=== PATIENT | male | born 1935 | race Caucasian/White ===

== ENCOUNTER 2021-01-12 22:45 | Inpatient (IN) | payer MEDICARE ==
[2021-01-13 02:24] VITALS: BMI 28.0
[2021-01-13] MEDS: Sodium Chloride 0.9% 1,000 ML IV SCH ×2 (04:30→11:37)
[2021-01-13] MEDS ORDERED: Piperacillin/Tazobactam 3.375 GM in Sodium Chloride 0.9% 100 ML IVPB SCH (05:00)
[2021-01-13 06:33] LABS: SARS-CoV-2 NAA Rapid Test Not Detected (NotDetected)
[2021-01-13] MEDS ORDERED: Iothalamate Meglumine 60% 30 ML VIAL FS ONE ×2 (11:40→14:06)
[2021-01-13] MEDS ORDERED: Fentanyl 100 MCG/2 ML VIAL ONE (11:43)
[2021-01-13] MEDS ORDERED: Piperacillin/Tazobactam 3.375 GM VIAL ONE (12:06)
[2021-01-13] MEDS ORDERED: Sodium Chloride 0.9% 100 ML ONE (12:07)
[2021-01-13] MEDS ORDERED: ePHEDrine 50 MG/ML VIAL ONE (13:32)
[2021-01-13] MEDS ORDERED: Lidocaine 1% PF 5 ML VIAL ONE (13:32)
[2021-01-13] MEDS ORDERED: PROPOFOL 200 MG/20 ML VIAL ONE (13:32)
[2021-01-13] MEDS ORDERED: Ondansetron HCl/PF 4 MG/2 ML Vial IVP PRN (14:26)
[2021-01-13] MEDS ORDERED: Promethazine HCl 25 MG/ML VIAL IVPB PRN (14:26)
[2021-01-13] MEDS ORDERED: Promethazine HCl 25 MG/ML VIAL IM PRN (14:26)
[2021-01-13] MEDS ORDERED: Ondansetron PF 4 MG/2 ML Vial IVP PRN (18:59)
[2021-01-13] MEDS ORDERED: Loratadine 10 MG TAB PO PRN (20:37)
[2021-01-13] MEDS: Carvedilol 6.25 MG TAB PO SCH (20:50)
[2021-01-14 06:02] LABS: #Eosinphils 0.2 thou/uL (0.0-0.7); #Monocytes 0.8 thou/uL (0.11-0.59); #Neutrophils 5.1 thou/uL (1.40-6.50); %Basophils 0.3 % (0.0-1.0); %Eosinophils 3.3 % (0.0-10.0); %Lymphocytes 13.5 % (21.0-51.0); %Monocytes 11.8 % (0.0-10.0); %Neutrophils 71.1 % (42.0-75.0); Mean Corpuscular HGB CONC 32.7 g/dL (32.0-36.0); Mean Corpuscular Hemoglobin 32.8 pg (27.0-31.0); Mean Platelet Volume 6.8 fL (7.4-10.4); Platelet Count 194 thou/uL (130-400); RBC Distribution Width 12.3 % (11.5-14.5); Red Blood Cell (RBC) Count 4.26 mill/uL (4.70-6.10); White Blood Cell (WBC) Count 7.1 thou/uL (4.8-10.8)
[2021-01-14 06:21] LABS: Anion Gap 10 mmol/L (10-20); BUN (Urea Nitrogen) 32 mg/dL (8.4-25.7); Calc. Creatinine Clearance 28 mL/min (70-130); Calcium 8.9 mg/dL (7.8-10.44); Carbon Dioxide 30 mmol/L (23-31); Chloride 105 mmol/L (98-107); Glucose 110 mg/dL (83-110); Potassium 3.7 mmol/L (3.5-5.1); Sodium 141 mmol/L (136-145)
[2021-01-14] MEDS: Carvedilol 6.25 MG TAB PO SCH ×2 (08:37→20:17)
[2021-01-14] MEDS: Sodium Chloride 0.9% 1,000 ML IV SCH (14:29)
[2021-01-15] MEDS: Sodium Chloride 0.9% 1,000 ML IV SCH ×2 (00:16→10:26)
[2021-01-15 06:13] LABS: #Eosinphils 0.3 thou/uL (0.0-0.7); #Lymphocytes 1.1 thou/uL (1.20-3.40); #Monocytes 0.8 thou/uL (0.11-0.59); %Basophils 0.2 % (0.0-1.0); %Eosinophils 4.9 % (0.0-10.0); %Lymphocytes 17.5 % (21.0-51.0); %Monocytes 12.6 % (0.0-10.0); %Neutrophils 64.8 % (42.0-75.0); Hemoglobin 13.6 g/dL (14.0-18.0); Mean Corpuscular HGB CONC 33.9 g/dL (32.0-36.0); Mean Corpuscular Hemoglobin 33.8 pg (27.0-31.0); Mean Corpuscular Volume 99.8 fL (78.0-98.0); Mean Platelet Volume 7.3 fL (7.4-10.4); Platelet Count 195 thou/uL (130-400); RBC Distribution Width 12.3 % (11.5-14.5); Red Blood Cell (RBC) Count 4.02 mill/uL (4.70-6.10); White Blood Cell (WBC) Count 6.2 thou/uL (4.8-10.8)
[2021-01-15 06:32] LABS: Anion Gap 8 mmol/L (10-20); BUN (Urea Nitrogen) 20 mg/dL (8.4-25.7); Calc. Creatinine Clearance 47 mL/min (70-130); Calcium 8.7 mg/dL (7.8-10.44); Carbon Dioxide 29 mmol/L (23-31); Chloride 108 mmol/L (98-107); Glucose 105 mg/dL (83-110); Potassium 3.9 mmol/L (3.5-5.1); Sodium 141 mmol/L (136-145)
[2021-01-15] MEDS: Carvedilol 6.25 MG TAB PO SCH (08:40)
[2021-01-15] MEDS ORDERED: Amlodipine 10 MG TAB PO SCH (10:15)
[2021-01-15] MEDS ORDERED: hydrALAZINE 25 MG TAB PO SCH ×2 (10:15→15:00)
[2021-01-15 11:42] VITALS: BP 154/92; TEMP 97.6
== END 2021-01-15 12:55 | disposition home or self-care (01) | DRG 660 ==
LOC: ERS 22:45 → INTOOBSV 01-13 00:06 → SJJU 01-13 00:06 → OBSVTOIN 01-14 13:43
PROVIDERS: ADMIT Surgery; ATTEND Internal Medicine
PROC: 0T788DZ Dilation of Bilateral Ureters with Intraluminal Device, Via Natural or Artificial Opening Endoscopic (ICD-10-PCS; principal; 2021-01-14)
PROC: BT141ZZ Fluoroscopy of Kidneys, Ureters and Bladder using Low Osmolar Contrast (ICD-10-PCS; 2021-01-14)
DX: N13.2 Hydronephrosis with renal and ureteral calculous obstruction (principal); N13.8 Other obstructive and reflux uropathy; Z20.822 Contact with and (suspected) exposure to COVID-19; I10 Essential (primary) hypertension; N40.1 Benign prostatic hyperplasia with lower urinary tract symptoms; N17.9 Acute kidney failure, unspecified; I16.0 Hypertensive urgency; K57.30 Diverticulosis of large intestine without perforation or abscess without bleeding; Z79.899 Other long term (current) drug therapy; Z90.10 Acquired absence of unspecified breast and nipple
CPT/HCPCS: 36415; 74420; 80048; 85025; 96374; C2617; G0378; J2543; J2704; J3010; J3490; U0002; U0005

== ENCOUNTER 2023-01-13 07:56 | Day surgery (SDC) | payer MEDICARE ==
[2023-01-12 11:00] VITALS: BMI 25.7
[~2023-01-13 07:56] MED LIST: Activase 2 MG VIAL FS SCH; EPINEPHrine 0.3 MG in Ophthalmic Irrigation Solution 500 ML IRR SCH; Midazolam HCl 2 mg/2 ml Vial ONE; fentaNYL 50 mcg/mL 1 mL Vial ONE
[2023-01-13] MEDS ORDERED: PHENYLephrine 2.5% Ophth Soln 15 ml Bottle ONE (08:43)
[2023-01-13] MEDS ORDERED: Cyclopentolate 0.5% Opth Drops 15 ML BOT ONE (08:44)
[2023-01-13] MEDS ORDERED: Lidocaine 4% PF 5 ML AMP ONE (10:25)
[2023-01-13] MEDS ORDERED: Maxitrol 0.1% Opth Oint 3.5 GM TUBE ONE (10:25)
[2023-01-13] MEDS ORDERED: Lidocaine 1% PF 5 ML VIAL ONE (10:25)
[2023-01-13] MEDS ORDERED: Triamcinolone 40 MG/ML VIAL ONE (10:25)
[2023-01-13] MEDS ORDERED: CEFAZOLIN 1 GM VIAL ONE (10:25)
[2023-01-13] MEDS ORDERED: Bupivacaine 0.75% 10 ML VIAL ONE (10:25)
== END 2023-01-13 11:20 | disposition home or self-care (01) ==
LOC: SDC 07:56
PROVIDERS: ATTEND Ophthalmology Retina Specialist
PROC: 08T43ZZ Resection of Right Vitreous, Percutaneous Approach (ICD-10-PCS; principal; 2023-01-13)
PROC: 08NE3ZZ Release Right Retina, Percutaneous Approach (ICD-10-PCS; 2023-01-13)
DX: H43.11 Vitreous hemorrhage, right eye (principal)
CPT/HCPCS: J0171; J0690; J2250; J2997; J3010; J3301; J3490